=== PATIENT | male | born 1975 | race Caucasian/White ===

== ENCOUNTER 2016-12-13 11:21 | Outpatient (CLI) | payer MEDICARE, OTHER | END 2016-12-13 11:22 | disposition home or self-care (01) | DX: I15.9 Secondary hypertension, unspecified (principal); I51.7 Cardiomegaly ==

== ENCOUNTER 2017-05-23 08:11 | Outpatient (CLI) | payer MEDICARE, OTHER ==
[2017-05-23] MEDS ORDERED: IOPAMIDOL-300 100 ML VIAL ONE (09:12)
[2017-05-23] MEDS ORDERED: IOPAMIDOL-300 100 ML VIAL IVP ONE (10:23)
--- NOTE | 2017-05-23 17:38 | CT Report ---
CT SCAN OF THE ABDOMEN WITHOUT AND WITH CONTRAST: 05/23/2017 CLINICAL HISTORY: Hypertension, renal failure, dialysis. COMPARISON: None. CONTRAST: 100 mL of Isovue-300. TECHNIQUE: Axial images of the abdomen pre and postcontrast using an adrenal protocol with multiplanar reformations. FINDINGS: Small atrophic appearing kidneys with bilateral renal cysts. The liver, spleen, pancreas, and gallbladder are unremarkable. The right adrenal contour is normal. There is slight fullness on the left. Precontrast left adrenal is approximately 18 Hounsfield units, in the immediate postcontrast phase 60 Hounsfield units and in the delayed phase 13 Hounsfield units, consistent with benignity. No free fluid, adenopathy, abnormal collections or other findings. Negative bony structures. IMPRESSION: ATROPHIC APPEARING KIDNEYS WITH MULTIPLE SMALL CYSTS. NO SIGNIFICANT ADRENAL PATHOLOGY IDENTIFIED. In accordance with CT protocol optimization, one or more of the following dose reduction techniques were utilized for this exam: automated exposure control, adjustment of mA and/or KV based on patient size, or use of iterative reconstructive technique. JOB #: [id number] EXT JOB #: [id number] MTDD
== END 2017-05-23 08:12 | disposition home or self-care (01) ==
LOC: DI 08:11
PROVIDERS: ATTEND Internal Medicine Nephrology
DX: I13.10 Hypertensive heart and chronic kidney disease without heart failure, with stage 1 through stage 4 chronic kidney disease, or unspecified chronic kidney disease (principal); N18.9 Chronic kidney disease, unspecified; Q61.02 Congenital multiple renal cysts
CPT/HCPCS: 74170; Q9967